=== PATIENT | male | born 1970 | race Caucasian/White ===

== ENCOUNTER 2018-01-06 16:35 | Emergency (ER) | payer BC ==
[2018-01-06] MEDS ORDERED: KETOROLAC TROMETHAMINE 30 MG/1 ML VIAL IVPUSH ONE (17:53)
--- NOTE | 2018-01-06 17:55 | PDOC ---
History of Present Illness - General History Source: Patient Exam Limitations: No Limitations - History of Present Illness Initial Comments: 01/06/18 18:01 The patient is a 47 year old male, with a significant past medical history of kidney stones, who presents to the emergency department with right flank pain for two days. The patient states the pain radiates from his right lower back to right inguinal region, feels like squeezing, with intermittent increases in pain severity. The patient states he was asymptomatic at work from 6am to 2pm, however, reports pain around 2:30pm which was worse than yesterday. He states the pain lasts for about 20 minutes at a time and can be slightly alleviated by walking. He reports the right flank pain is exacerbated with urination, but denies dysuria or hematuria. He denies taking anything for pain today. He reportedly had 3 stones at one time, but states this pain feels different. The patient denies chest pain, shortness of breath, headache and dizziness. The patient denies fever, chills, nausea, vomit, diarrhea and constipation. The patient denies dysuria, frequency, urgency and hematuria. Allergies: NKDA Past surgical history: none reported Social history: Pt denies ETOH consumption or tobacco use PCP - Dr. Sanchez <Vanessa Mayers - Last Filed: 01/06/18 18:00> <Kenney Shepherd - Last Filed: 01/06/18 19:18> - General Chief Complaint: Back Pain Stated Complaint: RT SIDE BACK PAIN Time Seen by Provider: 01/06/18 16:54 Past History <Vanessa Mayers - Last Filed: 01/06/18 18:00> - Suicide/Smoking/Psychosocial Hx Smoking History: Never smoked Hx Alcohol Use: Yes Substance Use Type: Alcohol <Kenney Shepherd - Last Filed: 01/06/18 19:18> - Past Medical History Allergies/Adverse Reactions: Allergies Allergy/AdvReac Type Severity Reaction Status Date / Time No Known Allergies Allergy Verified 11/26/14 18:26 Home Medications: Ambulatory Orders Amoxicillin - [Amoxicillin 250mg Capsule -] 500 mg PO DAILY 11/26/14 Naproxen Sodium [Anaprox Ds] 550 mg PO BID PRN #14 tablet 11/26/14 Ibuprofen [Motrin -] 400 mg PO QID PRN #28 tablet 01/06/18 Oxycodone HCl/Acetaminophen [Percocet 5-325 mg Tablet -] 1 combo PO Q6H PRN #14 tablet MDD 4 01/06/18 Tamsulosin HCl [Flomax] 0.4 mg PO DAILY #7 capsule 01/06/18 Review of Systems - Review of Systems Able to Perform ROS?: Yes Comments:: 01/06/18 18:01 CONSTITUTIONAL: No reported: Fever, Chills, Diaphoresis, Generalized Weakness, Malaise, Loss of Appetite HEENT: No reported: Rhinorrhea, Nasal Congestion, Throat Pain, Throat Swelling, Difficulty Swallowing, Mouth Swelling, Ear Pain, Eye Pain, Visual Changes CARDIOVASCULAR: No reported: Chest Pain, Syncope, Palpitations, Irregular Heart Rate, Lightheadedness, Peripheral Edema RESPIRATORY: No reported: Cough, Shortness of Breath, SOB with Exertion, Orthopnea, Wheezing , Stridor, Hemoptysis GASTROINTESTINAL: No reported: Abdominal pain, Abdominal Distension, Nausea, Vomiting, Diarrhea, Constipation, Melena, Hematochezia GENITOURINARY: (+) right flank pain exacerbated by urination. No reported: Dysuria, Frequency, Urgency, Hesitancy, Genital Pain MUSCULOSKELETAL: No reported: Myalgia, Arthralgia, Joint Swelling, Back pain, Neck Pain SKIN: No reported: Rash, Itching, Pallor HEMEATOLOGIC/IMMUNOLOGIC: No reported: Easy Bleeding, Easy Bruising, Lymphadenopathy, Frequent infections ENDOCRINE: No reported: Unexplained Weight Gain, Unexplained Weight Loss, Heat Intolerance , Cold Intolerance NEUROLOGIC: No reported: Headache, Focal Weakness, Paresthesias, Vertigo, Lightheadedness, Unsteady Gait, Seizure, Mental Status Changes, Incontinence PSYCHIATRIC: No reported: Anxiety, Depression <Vanessa Mayers - Last Filed: 01/06/18 18:00> *Physical Exam - Physical Exam Comments: 01/06/18 18:01 GENERAL: The patient is awake, alert, and fully oriented, Nontoxic - in no acute distress. HEAD: Normocephalic, atraumatic. EYES: extraocular movements intact, sclera anicteric, conjunctiva clear. ENT: Normal voice, Moist mucous membranes. NECK: Normal range of motion, supple LUNGS: Breath sounds equal, clear to auscultation bilaterally. No wheezes, no rhonchi, no rales. HEART: Regular rate and rhythm, without murmur, rub or gallop. ABDOMEN: Soft, nontender, normoactive bowel sounds. No guarding, no rebound. No CVA tenderness MUSCULOSKELETAL: (+) hypertrophied paraspinal lumbar muscles. EXTREMITIES: Normal range of motion, no edema. No clubbing or cyanosis. No cords , erythema, or tenderness. NEUROLOGICAL: No facial assymetry, Normal speech, PSYCH: Normal mood, normal affect. SKIN: Warm, Dry, normal turgor, <Vanessa Mayers - Last Filed: 01/06/18 18:00> ED Treatment Course - LABORATORY CBC & Chemistry Diagram: 01/06/18 18:19 01/06/18 18:19 <Kenney Shepherd - Last Filed: 01/06/18 19:18> Medical Decision Making - Medical Decision Making 01/06/18 17:55 47y M hx of kidney stones presents with complaint of R sided back pain radiating to the flank, pt denie an fever/chills, n/v, diaphoresis, dysuria, hematuria, numbness/tingling/weakness, urinary or bowel incontinence. on exam pt is no acute distress, has mild tenderness noted on his R flank/ hypertrophired muscles. ddx: msucle spasm vs kidney stones will ck UA if +blood will ck CT will give toradol 01/06/18 19:11 pts albs reviewed noted for 3+ blood no signs of infection suspect hsi symptoms are secondary to kidney stone. pt is currently pain free will defer CT spiral will recommed meds/flomax will fu with urology fu return precautions were discussed I discussed the physical exam findings, ancillary test results and final diagnoses with the patient. I answered all of the patient's questions. The patient was satisfied with the care received and felt comfortable with the discharge plan and treatment plan. The patient will call their primary care physician within 24 hours to arrange follow-up and will return to the Emergency Department with any new, persistent or worsening symptoms. <Kenney Shepherd - Last Filed: 01/06/18 19:18> *DC/Admit/Observation/Transfer - Attestations Scribe Attestion: 01/06/18 18:02 Documentation prepared by Vanessa Mayers, acting as medical aide for Kenney Shepherd MD <Vanessa Mayers - Last Filed: 01/06/18 18:00> - Discharge Dispostion Admit: No <Kenney Shepherd - Last Filed: 01/06/18 19:18> Diagnosis at time of Disposition: Renal colic on right side - Discharge Dispostion Disposition: HOME Condition at time of disposition: Improved - Referrals Referrals: Derrek York MD [Staff Physician] - - Patient Instructions Printed Discharge Instructions: DI for Kidney Stones Additional Instructions: Return to the emergency department immediately with ANY new, persistent or worsening symptoms including intolerable pain, inability to tolerate oral intake , fevers, chills or any other concerns. Take the medications as prescribed Strain your urine for kidney stones. You MUST call and follow up with your urologist within 3 days for further evaluation of your symptoms. Results were discussed with you. Please make sure your doctor reviews the results of your emergency evaluation. Print Language: JAPANESE
[2018-01-06 18:04] VITALS: TEMP 98.1; BMI 27.4
[2018-01-06] MEDS ORDERED: KETOROLAC TROMETHAMINE 30 MG/1 ML VIAL ONE (18:10)
[2018-01-06 18:17] LABS: URINE APPEARANCE Clear; URINE BILIRUBIN Negative (NEGATIVE); URINE GLUCOSE (UA) Negative (NEGATIVE); URINE KETONE Negative (NEGATIVE); URINE LEUK ESTERASE Negative (NEGATIVE); URINE NITRITE Negative (NEGATIVE); URINE PROTEIN Negative (NEGATIVE); URINE UROBILINOGEN 0.2 (0.2-1.0)
[2018-01-06 18:21] LABS: URINE BLOOD 3+ (NEGATIVE); URINE COLOR YELLOW
[2018-01-06 18:23] LABS: URINE BACTERIA FEW /hpf (NEGATIVE); URINE RBC 20-30 /hpf (0-3); URINE WBC 0-2 (0-2)
[2018-01-06 18:32] LABS: HEMOGLOBIN 15.1 GM/dl (11.7-16.9); MCHC 34.3 g/dl (32.0-35.9); MEAN CELL VOLUME 93.1 fl (80-96); MEAN PLT VOLUME 7.8 fl (7.5-11.1); PLATELET COUNT 252 K/MM3 (134-434); RBC 4.73 M/mm3 (4.00-5.60); RDW 11.4 % (11.9-15.9); WHITE BLOOD COUNT 7.6 K/mm3 (4.0-10.8)
[2018-01-06 18:44] LABS: ALBUMIN 4.4 g/dl (3.5-5.0); ALK PHOS 62 U/L (32-92); ANION GAP 8 (8-16); BILIRUBIN,TOTAL 0.9 mg/dl (0.2-1.0); BLOOD UREA NITROGEN 19 mg/dl (7-18); CALCIUM 9.1 mg/dl (8.4-10.2); CHLORIDE 98 mmol/L (98-107); CO2 27 mmol/L (22-28); GLUCOSE,RANDOM 104 mg/dl (74-106); POTASSIUM 3.9 mmol/L (3.5-5.1); SGOT/AST 19 U/L (10-42); SGPT/ALT 18 U/L (10-40); SODIUM 133 mmol/L (136-145); TOT PROT 7.3 g/dl (6.4-8.3)
[2018-01-06 19:36] VITALS: BP 130/71; PULSE 52
== END 2018-01-06 19:36 | disposition home or self-care (01) ==
LOC: FER 16:35
PROC: 3E0333Z Introduction of Anti-inflammatory into Peripheral Vein, Percutaneous Approach (ICD-10-PCS; principal; 2018-01-06)
DX: N23 Unspecified renal colic (principal)
CPT/HCPCS: 36415; 80053; 81003; 81015; 85027; 99283-25